=== PATIENT | male | born 1950 | race Caucasian/White ===

== ENCOUNTER 2022-01-27 09:54 | Outpatient (CLI) | payer MEDICARE | END 2022-01-27 09:55 | disposition home or self-care (01) | LOC: CSHWCC 09:54 | PROVIDERS: ATTEND Nurse Practitioner Family | DX: S81.802D Unspecified open wound, left lower leg, subsequent encounter (principal); R60.0 Localized edema | CPT/HCPCS: 11042; 97607 ==

== ENCOUNTER 2022-02-10 11:14 | Outpatient (CLI) | payer MEDICARE | END 2022-02-10 11:15 | disposition home or self-care (01) | LOC: CSHWCC 11:14 | PROVIDERS: ATTEND Nurse Practitioner Family | DX: S81.802D Unspecified open wound, left lower leg, subsequent encounter (principal); R60.0 Localized edema ==

== ENCOUNTER 2022-02-17 08:39 | Outpatient (CLI) | payer MEDICARE | END 2022-02-17 08:40 | disposition home or self-care (01) | LOC: CSHWCC 08:39 | PROVIDERS: ATTEND Nurse Practitioner Family | DX: S81.802D Unspecified open wound, left lower leg, subsequent encounter (principal); R60.0 Localized edema ==

== ENCOUNTER 2022-02-25 08:26 | Outpatient (CLI) | payer MEDICARE | END 2022-02-25 08:27 | disposition home or self-care (01) | LOC: CSHWCC 08:26 | PROVIDERS: ATTEND Nurse Practitioner Family | DX: S81.802D Unspecified open wound, left lower leg, subsequent encounter (principal); R60.0 Localized edema | CPT/HCPCS: 11042 ==

== ENCOUNTER 2022-03-04 08:39 | Outpatient (CLI) | payer MEDICARE | END 2022-03-04 08:40 | disposition home or self-care (01) | LOC: CSHWCC 08:39 | PROVIDERS: ATTEND Nurse Practitioner Family | DX: S81.802D Unspecified open wound, left lower leg, subsequent encounter (principal); R60.0 Localized edema | CPT/HCPCS: 97139; G0463; 99213 ==

== ENCOUNTER 2022-03-18 08:24 | Outpatient (CLI) | payer MEDICARE | END 2022-03-18 08:25 | disposition home or self-care (01) | LOC: CSHWCC 08:24 | PROVIDERS: ATTEND Nurse Practitioner Family | DX: S81.802D Unspecified open wound, left lower leg, subsequent encounter (principal); R60.0 Localized edema | CPT/HCPCS: 99213; G0463 ==

== ENCOUNTER 2022-04-01 08:34 | Outpatient (CLI) | payer MEDICARE | END 2022-04-01 08:35 | disposition home or self-care (01) | LOC: CSHWCC 08:34 | PROVIDERS: ATTEND Nurse Practitioner Family | DX: S81.802D Unspecified open wound, left lower leg, subsequent encounter (principal); R60.0 Localized edema ==

== ENCOUNTER 2022-06-06 13:25 | Outpatient (CLI) | payer MEDICARE | END 2022-06-06 13:26 | disposition home or self-care (01) | LOC: CSHWCC 13:25 | PROVIDERS: ATTEND Nurse Practitioner Family | DX: L20.9 Atopic dermatitis, unspecified (principal) ==

== ENCOUNTER 2024-10-08 12:25 | Outpatient (CLI) | payer OTHER | END 2024-10-08 12:26 | disposition home or self-care (01) | LOC: CSHCP 12:25 | PROVIDERS: ATTEND Internal Medicine | DX: J44.9 Chronic obstructive pulmonary disease, unspecified (principal) | CPT/HCPCS: 94060; 94664; 94726; 94729; 94760 ==